=== PATIENT | female | born 1960 | race American Indian/Alaskan Native ===

== ENCOUNTER 2018-09-10 18:27 | Inpatient (IN) | payer OTHER ==
[2018-09-10 18:40] VITALS: BMI 29.0
--- NOTE | 2018-09-10 19:43 | ED PDOC ---
Arrival/HPI - General Chief Complaint: Chest Pain Time Seen by Provider: 09/10/18 19:09 Historian: Patient - History of Present Illness Narrative History of Present Illness (Text): 09/10/18 19:09 Kenzie Ribeiro is a 58 year old female, with a past medical history of CHF, CA, stents, and hypertension, who presents to the emergency department complaining of right arm weakness / numbness and chest pain earlier today. Patient's daughter states she was cooking when right arm fell limp at her side at 5:30pm. Patient notes history of chest pains in past but no history of right arm weakness or numbness. Patient informs of hypertension usually between 180- 190 systolic. Patient's chest pain and right arm weakness / numbness have currently resolved in the emergency department. Patient denies fevers, chills, headache, dizziness, diaphoresis, shortness of breath, dyspnea on exertion, cough, abdominal pain, nausea, vomiting, diarrhea, back pain, neck pain, or any other complaint. Symptom Onset: Sudden Symptom Course: Resolved Activities at Onset: Light Context: Home Past Medical History - Provider Review Nursing Documentation Reviewed: Yes - Reproductive Menopause: Yes - Cardiac Hx Cardiac Disorders: Yes Hx Congestive Heart Failure: Yes Hx Hypertension: Yes Hx Mitral Valve Prolapse: Yes - Endocrine/Metabolic Hx Endocrine Disorders: Yes Hx Diabetes Mellitus Type 2: Yes - Psychiatric Hx Substance Use: No - Surgical History Hx Valve Replacement: Yes (mitral valve,2018) - Anesthesia Hx Anesthesia: Yes Hx Anesthesia Reactions: No Hx Malignant Hyperthermia: No Family/Social History - Physician Review Nursing Documentation Reviewed: Yes Family/Social History: No Known Family HX Smoking Status: Former Smoker Hx Alcohol Use: No Hx Substance Use: No Allergies/Home Meds Allergies/Adverse Reactions: Allergies No Known Allergies Allergy (Verified 09/10/18 18:41) Home Medications: Home Meds Medication Instructions Recorded Confirmed Aspirin [Aspirin Chewable] 81 mg PO DAILY 09/10/18 09/10/18 Atorvastatin [Lipitor] 40 mg PO DAILY 09/10/18 09/10/18 Carvedilol [Coreg] 6.25 mg PO Q12 09/10/18 09/10/18 Furosemide [Lasix] 40 mg PO DAILY 09/10/18 09/10/18 MetFORMIN ER [Glucophage XR] 1,000 mg PO DAILY 09/10/18 09/10/18 Ranolazine [Ranexa] 500 mg PO BID 09/10/18 09/10/18 Sacubitril/Valsartan [Entresto 49 1 tab PO BID 09/10/18 09/10/18 mg-51 mg] Review of Systems - Physician Review All systems were reviewed & negative as marked: Yes - Review of Systems Constitutional: absent: Fevers Respiratory: absent: SOB Cardiovascular: Chest Pain Neurological: Other (right arm numbness and weakness.). absent: Headache Endocrine: absent: Diaphoresis Physical Exam - Physical Exam Narrative Physical Exam (Text): 09/10/18 19:09 Constitutional: No acute distress. Head: Normocephalic. Atraumatic. Eyes: PERRL. ENT: Moist mucous membranes. Neck: Supple. Cardiovascular: Regular rate. Chest: No tenderness. Respiratory: Clear to auscultation bilaterally. GI: Soft. Nontender. Nondistended. Back: No CVA tenderness. Musculoskeletal: No tenderness or swelling of extremities. Skin: No rash. Neurologic: Alert, no focal deficit. Vital Signs Reviewed: Yes Vital Signs Temp Pulse Resp BP Pulse Ox 09/10/18 19:08 97.9 F 82 16 165/111 H 100 Temperature: Afebrile Blood Pressure: Hypertensive Pulse: Regular Respiratory Rate: Normal Appearance: Positive for: Well-Appearing, Non-Toxic, Comfortable Pain Distress: None Mental Status: Positive for: Alert and Oriented X 3 Medical Decision Making ED Course and Treatment: 09/10/18 19:09 Impression: Patient is a 58 year old female who presents to the emergency department complaining of chest pain and right arm weakness / numbness. Patient has no history of right arm weakness / numbness but has history of chest pain. Differential Diagnosis included but are not limited to: TIA, ACS Plan: -- CT head w/o contrast -- Labs -- Chest X-Ray -- Reassess and disposition Progress Notes: Dr. Guy accepts patient to medical service. Full dose ASA taken prior to arrival. Recommends Dr. Portillo and Dr. Layton for consultation. EKG NSR 86 bpm, no ST elevations, lateral T wave inversions. - RAD Interpretation Radiology Orders: 09/10/18 19:24 CHEST PORTABLE [RAD] Stat 09/10/18 19:25 HEAD W/O CONTRAST [CT] Stat rTPA Inclusion/Exclusion - Refusal of Treatment Patient Refused Treatment: No - Inclusion Criteria for Altepase Patient is 18 years or Older: Yes The Clinical Diagnosis of Ischemic Stroke That is Causing a Potentially Disabling Neurological Deficit: No Time of Onset is Well Established to be Less Than 270 Minute Before Treatment Would Begin: Yes Risk/Benefit Discussed With Patient/Family Member Present: Yes NIHSS Stroke Scale 3 - Date/Time Evaluation Performed Date Performed: 09/10/18 Time Performed: 07:32 When Was NIHSS Performed: Baseline - How Severe is the Stroke Level of Consciousness: 0=Alert LOC to Questions: 0=Both comments correct LOC to commands: 0=Obeys both correctly Best Gaze: 0=Normal Visual: 0=No visual loss Facial: 0=Normal Motor Arm - Left: 0=No drift Motor Arm - Right: 0=No drift Motor Leg - Left: 0=No drift Motor Leg - Right: 0=No drift Limb Ataxia: 0=Absent Sensory: 0=Normal Best Language: 0=No aphasia Dysarthia: 0=Normal articulation Extinction & Inattention (Neglect): 0=Normal, no object Score: 0 - Scribe Statement The provider has reviewed the documentation as recorded by the Scribe Poncho Beth All medical record entries made by the Scribe were at my direction and personally dictated by me. I have reviewed the chart and agree that the record accurately reflects my personal performance of the history, physical exam, medical decision making, and the department course for this patient. I have also personally directed, reviewed, and agree with the discharge instructions and disposition. Disposition/Present on Arrival - Present on Arrival Any Indicators Present on Arrival: No History of DVT/PE: No History of Uncontrolled Diabetes: No Urinary Catheter: No History of Decub. Ulcer: No History Surgical Site Infection Following: None - Disposition Have Diagnosis and Disposition been Completed?: Yes Diagnosis: Chest pain, Arm weakness Disposition: HOSPITALIZED Disposition Time: 20:55 Patient Plan: Observation, Telemetry Condition: FAIR Forms: [employer] (Yi)
[2018-09-10 19:52] LABS: BASO # 0.05 K/mm3 (0.0-2.0); EOS # 0.1 (0.0-0.7); EOS % 2.8 % (1.5-5.0); HEMOGLOBIN 10.6 g/dL (12.0-16.0); LYMPH # 1.2 (1.2-3.4); LYMPH % 23.6 % (22.0-35.0); MEAN CORPUSCULAR HEMOGLOBIN 24.1 pg (25.0-35.0); MEAN CORPUSCULAR HGB CONC 30.9 g/dl (31.0-37.0); MEAN PLATELET VOLUME 9.5 fl (7.0-11.0); MONO # 0.4 (0.1-0.6); MONO % 8.1 % (1.0-6.0); RBC 4.4 10^6/uL (3.5-6.1); RED CELL DISTRIBUTION WIDTH 16.6 % (11.5-14.5); WHITE BLOOD COUNT 5.1 10^3/uL (4.5-11.0)
[2018-09-10 19:56] LABS: INR 1.39; PARTIAL THROMBOPLASTIN TIME 35.9 Seconds (26.9-38.3); PROTHROMBIN TIME 15.4 SECONDS (9.4-12.5)
[2018-09-10 20:00] LABS: ALBUMIN 3.8 g/dL (3.0-4.8); ALT/SGPT 33 U/L (7-56); AST/SGOT 36 U/L (14-36); BLOOD UREA NITROGEN 19 mg/dL (7-21); CALCIUM 9.3 mg/dL (8.4-10.5); GFR NON-AFRICAN AMERICAN 57
[2018-09-10 20:12] LABS: TROPONIN I 0.06 ng/mL
--- NOTE | 2018-09-11 08:41 | CT ---
Date of service: 09/10/2018 PROCEDURE: CT HEAD WITHOUT CONTRAST. HISTORY: R arm weakness/numbness for 10 minutes, resolved COMPARISON: None available. TECHNIQUE: Axial computed tomography images were obtained through the head/brain without intravenous contrast. Radiation dose: Total exam DLP = 914.08 mGy-cm. This CT exam was performed using one or more of the following dose reduction techniques: Automated exposure control, adjustment of the mA and/or kV according to patient size, and/or use of iterative reconstruction technique. FINDINGS: HEMORRHAGE: No intracranial hemorrhage. BRAIN: No mass effect or edema. No atrophy or chronic microvascular ischemic changes. VENTRICLES: Unremarkable. No hydrocephalus. CALVARIUM: Unremarkable. PARANASAL SINUSES: Unremarkable as visualized. No significant inflammatory changes. MASTOID AIR CELLS: Unremarkable as visualized. No inflammatory changes. OTHER FINDINGS: None. IMPRESSION: Normal CT of the Head.
--- NOTE | 2018-09-11 09:38 | RAD ---
Date of service: 09/10/2018 HISTORY: chest pain COMPARISON: No prior. FINDINGS: LUNGS: No active pulmonary disease. PLEURA: No significant pleural effusion identified, no pneumothorax apparent. CARDIOVASCULAR: No aortic atherosclerotic calcification present. Moderate cardiomegaly no pulmonary vascular congestion. OSSEOUS STRUCTURES: Sternal wires VISUALIZED UPPER ABDOMEN: Normal. OTHER FINDINGS: None. IMPRESSION: No active disease.
[2018-09-11] MEDS: SACUBITRIL 49mg/VALSARTAN 51mg tab PO SCH ×2 (09:47→17:42)
[2018-09-11] MEDS ORDERED: Home Med 1 UNIT PO SCH ×2 (10:00)
[2018-09-11] MEDS: Enoxaparin 100 mg Syringe SC SCH (14:27)
--- NOTE | 2018-09-11 17:02 | CARD ---
APPROVED REPORT Date of service: 09/10/2018 EKG Measurement Heart [id number] <Conclusion> Normal sinus rhythm Possible Left atrial enlargement Left ventricular hypertrophy T wave abnormality, consider lateral ischemia Prolonged QT Abnormal ECG
--- NOTE | 2018-09-11 17:10 | CON ---
DATE OF CONSULTATION: 09/11/2018 CARDIOLOGY CONSULTATION HISTORY: The patient is a 58-year-old woman with a history of mitral valve replacement in the fall of this year in [place], who had, according to her report, no coronary bypass surgery. She apparently is on Coumadin, but has not been checking it for the past four months. She presents with transient right arm weakness. PAST MEDICAL HISTORY: The patient's past medical history is notable for dilated cardiomyopathy and has been placed on Entresto as an outpatient from her doctors in [place]. She denies shortness of breath, denies angina. SOCIAL HISTORY: The patient does not smoke. 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 REVIEW OF SYSTEMS: A 14-point review of systems is reviewed in detail. No other cardiac symptoms other than weakness of the right upper extremity. PHYSICAL EXAMINATION: VITAL SIGNS: Blood pressure is 140/90, heart rate is in the 80s, sinus rhythm. NECK: Negative JVD. LUNGS: Without rales. CARDIAC: Heart rate S1, S2 with a soft systolic murmur. EXTREMITIES: Without edema. LABORATORY DATA: Laboratory shows normal sinus rhythm with diffuse ST-T changes. The INR on admission was 1.39. Chemistries, BUN and creatinine are unremarkable. Glucose is 129. Hemoglobin is 10.6. IMPRESSION: 1. New right upper extremity weakness, likely due to an embolic phenomenon from her heart. 2. Dilated cardiomyopathy. 3. Recent mitral valve replacement. 4. Subtherapeutic Coumadin levels with recent noncompliance with medical followup. 5. Anemia. 6. Diabetes mellitus. PLAN: Given these findings, the CT scan is negative for bleed. We will start the patient on Lovenox, full dose. The patient will need to get her Coumadin up to an INR of between 2.5 and 3. She will need careful followup to maintain her Coumadin at the right level. I have discussed this with the patient in detail. We will obtain an echocardiogram today. Jens Layton MD
[2018-09-11] MEDS: RANEXA 500 MG PO SCH (17:43)
--- NOTE | 2018-09-11 20:06 | HP ---
DATE OF EXAM: 09/11/2018 HISTORY OF PRESENT ILLNESS: She came into the emergency room last night complaining of right arm weakness and numbness and chest pain earlier in the day. She was cooking when the right arm fell limp. She has a history of chest pains in the past and right arm weakness in the past and numbness. Also, she has history of hypertension. She is uncomfortable now in bed with chest pain. PAST MEDICAL HISTORY: She has a past medical history of CHF, [place] with stents and hypertension. She has type 2 diabetes. She has mitral valve prolapse. PAST SURGICAL HISTORY: There is a large scar on her chest, she had surgery. She is unable to tell me what they did. FAMILY HISTORY: No known family history. SOCIAL HISTORY: A former smoker. No alcohol. No drugs. MEDICATIONS: She is on aspirin, Lipitor, Coreg, Lasix, Glucophage, Ranexa, and Entresto. I am adding amlodipine because her blood pressure is high this morning. We have been trying to get the blood pressure down, put her back on her regular medications plus I added amlodipine. REVIEW OF SYSTEMS: No acute vision or hearing changes. No sore throat. She is having chest pain. She is having shortness of breath. She has having right arm numbness and weakness which is improved now. No sweating. No skin issues. No nausea, vomiting, constipation, or diarrhea. PHYSICAL EXAMINATION GENERAL: She is in bed with chest pain at rest. She is doing okay, uncomfortable. VITAL SIGNS: A 97.9 temperature, 82 pulse, 16 respiratory rate, 165/111 blood pressure, and 100% O2 sat. HEENT: Head is atraumatic, normocephalic. Extraocular muscles intact. Pupils equally react to light and accommodation. Throat is moist. NECK: Supple. CHEST: The chest has a midline scar. HEART: Regular rate. LUNGS: Decreased breath sounds but clear to auscultation. She has chest pain when she takes a deep breath in. ABDOMEN: Soft, nontender. Positive bowel sounds. There is no edema. No rashes I could appreciate. NEUROLOGIC: Alert and oriented x3, uncomfortable. LABORATORY DATA: I had consulted Neurology and Cardiology. EKG showed normal sinus rhythm, no ST elevations some lateral T-wave inversions. She is on observation for chest pain and right arm pain and weakness and numbness. She has a 143 sodium, potassium is 3.7, BUN 19, creatinine 1, GFR is 57, sugar is 113, calcium 9.3, total bili is 0.6, AST is 36, ALT 33, alk phos 78, total protein is 7.8. Troponin I is 0.06, a second one is 0.05. INR is 1.39. White count is 5.1, hemoglobin 10.6, hematocrit 34.3, platelets of 326. There is a head CT, chest x-ray and EKG basically pending. ASSESSMENT AND PLAN: Neurology and Cardiology consults are pending. I added amlodipine. This apparently is the first time she has been on the hospital. We will continue with aggressive treatment and care on Kenzie Ribeiro of her chest pain and right arm weakness, which is resolved. Troponins are negative. Vamshi Guy DO
--- NOTE | 2018-09-11 22:17 | CON ---
DATE: 09/11/2018 HISTORY OF PRESENT ILLNESS: This is a 58-year-old black female with past medical history of CHF, [place], stent, hypertension, and status post open heart surgery and valve replacement. Came here because patient felt limp on the right upper extremity while cooking and also weakness and numbness of the right extremity and brought to the hospital. CAT scan of the head was done, which was reported negative for bleed or an infarct. Symptoms resolved. I was called to evaluate the patient. ALLERGIES: NO KNOWN DRUG ALLERGY. HOME MEDICATIONS: Lipitor, aspirin, Coreg, metformin, and furosemide. PHYSICAL EXAMINATION HEENT: Normocephalic, atraumatic. NECK: Supple. NEUROLOGIC: Alert, awake, oriented to x3. No aphasia. Cranial nerves II through XII were tested. Pupils reactive. EOM intact. Visual field full. No facial asymmetry. Tongue midline. Motor examination; moves all the extremities equally. Tone normal. Deep tendon reflexes 1+. Both plantars are downgoing. Sensory appears intact. Cerebellar gait normal. IMPRESSION AND PLAN: Possibly transient ischemic attack with improvement of the right arm weakness. Workup in progress. CAT scan of the head was negative. Continue present management. We will follow up. Romel Portillo MD
[2018-09-12] MEDS: Enoxaparin 100 mg Syringe SC SCH ×2 (01:55→13:26)
[2018-09-12] MEDS: SACUBITRIL 49mg/VALSARTAN 51mg tab PO SCH ×2 (09:23→17:45)
[2018-09-12] MEDS: RANEXA 500 MG PO SCH ×2 (09:27→17:09)
--- NOTE | 2018-09-12 12:06 | PN ---
DATE: 09/12/2018 SUBJECTIVE: I discussed with Dr. Layton, admitted attorneys, because she is having an embolic event who wants her on Coumadin, between 2 and 3 INR. She is currently on Coreg, Ecotrin, Entresto, Glucophage, Lasix, Lipitor, Lovenox, and Norvasc. I started on Coumadin 10 mg a day. PHYSICAL EXAMINATION: VITAL SIGNS: She has 97.8 temperature, 80 pulse, 132/80 blood pressure, 20 respiratory rate. HEENT: Head is atraumatic, normocephalic. HEART: Regular rate. LUNGS: Decreased breath sounds, but clear. ABDOMEN: Soft. EXTREMITIES: Improved strength when she came in. LABORATORY DATA: She has 143 sodium, potassium 3.7, BUN 19, creatinine 1, GFR is 57, sugars 123, calcium 9.3. Total bilirubin 0.6, AST is 36, ALT is 33, alkaline phosphatase 78, total protein is 7.8. Last troponin 0.05. White count 5.1, 10.6 hemoglobin, 34.3 hematocrit, 326 platelets. ASSESSMENT AND PLAN: The patient has been seen by Neurology and Cardiology. I started her on Coumadin today 10 mg. Check her labs tomorrow, physical therapy, and I changed her to inpatient. Vamshi Guy DO
--- NOTE | 2018-09-12 15:49 | CARD ---
APPROVED REPORT Date of service: 09/12/2018 EXAM: Two-dimensional and M-mode echocardiogram with Doppler and color Doppler. INDICATION MV REPLACEMENT 2D DIMENSIONS Left Atrium (2D)5.1 (1.6-4.0cm)IVSd1.3 (0.7-1.1cm) LVDd6.1 (3.9-5.9cm)PWd1.3 (0.7-1.1cm) LVDs5.7 (2.5-4.0cm)FS (%) 7.5 % LVEF (%)16.4 (>50%) M-Mode DIMENSIONS Aortic Root2.80 (2.2-3.7cm)Aortic Cusp Exc.1.60 (1.5-2.0cm) Aortic Valve AoV Peak Mgwfilpz224.0cm/Moni Peak GR.10mmHg Mitral Valve MV E Gzroapon564.0cm/sMV A Bawelfym90.9cm/sE/A ratio1.6 TDI Lateral E' Peak V6.14cm/sMedial E' Peak V4.19cm/sE/Lateral E'21.5 E/Medial E'31.5 Pulmonary Valve PV Peak Rjndytua11.3cm/sPV Peak Grad.1mmHg Tricuspid Valve TR Peak Jqfxebcd523rx/sRAP GXFOZAIR26ptVnIQ Peak Gr.39mmHg [id number] LEFT VENTRICLE The Left Ventricle is mildly dilated. There is normal left ventricular wall thickness. The systolic function is severely impaired. There is global hypokinesis of the left ventricle. No left ventricle thrombus noted on this study. RIGHT VENTRICLE The right ventricle is mildly dilated.RV Systolic function is severely reduced. There is normal right ventricular wall thickness. Systolic function is severely reduced. ATRIA The left atrium is moderately dilated. The right atrium is moderately dilated. AORTIC VALVE The aortic valve is normal in structure. No aortic regurgitation is present. There is no aortic valvular stenosis. MITRAL VALVE There is no mitral valve regurgitation noted. There is no mitral valve stenosis. The prosthetic mitral valve is not well visualized due to imaging artifacts from the prosthesis. TRICUSPID VALVE There is severe tricuspid regurgitation. There is moderate pulmonary hypertension. PULMONIC VALVE There is moderate pulmonic valvular regurgitation. GREAT VESSELS The aortic root is normal in size. <Conclusion> The Left Ventricle is mildly dilated. There is normal left ventricular wall thickness. The systolic function is severely impaired. There is global hypokinesis of the left ventricle. The right ventricle is mildly dilated.RV Systolic function is severely reduced. The prosthetic mitral valve is not well visualized due to imaging artifacts from the prosthesis. There is severe tricuspid regurgitation. There is moderate pulmonary hypertension. There is moderate pulmonic valvular regurgitation.
--- NOTE | 2018-09-12 17:22 | PN ---
DATE: 09/12/[address] Jens Layton. SUBJECTIVE: The patient complains of mild occipital headache. She denies any chest pain or shortness of breath. OBJECTIVE: VITAL SIGNS: Blood pressure 148/92, heart rate 87, temperature 97.8, respiration 20. HEENT: Normocephalic. CHEST: Clear. HEART: S1, S2 regular. ABDOMEN: Soft. EXTREMITIES: No edema. EKG revealed sinus rhythm at the rate of 86, possible left atrial enlargement, LVH, T wave abnormality, consider lateral ischemia, prolonged QT interval. Head CT scan without contrast was normal study. LABORATORY DATA: Today's blood sugars 123 and 185 respectively. Troponin on admission was 1.43. Today's hemoglobin and hematocrit 12.3 and 37.3, white count 14.9, platelet count 156,000. ASSESSMENT: 1. New onset right upper extremity weakness, rule out embolic event. 2. Dilated cardiomyopathy. 3. Recent mitral valve replacement with subtherapeutic INR. 4. Diabetes mellitus. 5. Hypertension. RECOMMENDATIONS: Continue Coreg 6.25 mg once a day. The patient will receive Coumadin 10 mg today. Continue aspirin 81 mg once a day, Lasix 40 mg p.o. once a day, Lipitor 40 mg once a day, therapeutic subcutaneous Lovenox at 90 mg twice a day and Norvasc at 2.5 mg once a day. I review the echocardiographic study performed today. Fito Garcia MD
[2018-09-13] MEDS: Enoxaparin 100 mg Syringe SC SCH ×2 (00:22→15:56)
[2018-09-13 08:03] LABS: HEMOGLOBIN 10.7 g/dL (12.0-16.0); MEAN CELL VOLUME 80.5 fl (80.0-105.0); MEAN CORPUSCULAR HEMOGLOBIN 23.5 pg (25.0-35.0); MEAN CORPUSCULAR HGB CONC 29.2 g/dl (31.0-37.0); MEAN PLATELET VOLUME 9.3 fl (7.0-11.0); RBC 4.56 10^6/uL (3.5-6.1); RED CELL DISTRIBUTION WIDTH 16.4 % (11.5-14.5); WHITE BLOOD COUNT 4.6 10^3/uL (4.5-11.0)
[2018-09-13 08:08] LABS: INR 1.35; PROTHROMBIN TIME 15.3 SECONDS (9.4-12.5)
[2018-09-13 09:04] LABS: ALB/GLOB RATIO 1.1 (1.1-1.8); ALBUMIN 3.6 g/dL (3.0-4.8); ALT/SGPT 26 U/L (7-56); AST/SGOT 17 U/L (14-36); BLOOD UREA NITROGEN 18 mg/dL (7-21); CALCIUM 9.3 mg/dL (8.4-10.5); GFR NON-AFRICAN AMERICAN 57
[2018-09-13] MEDS: SACUBITRIL 49mg/VALSARTAN 51mg tab PO SCH ×2 (09:42→17:54)
[2018-09-13] MEDS: RANEXA 500 MG PO SCH ×2 (09:44→17:37)
--- NOTE | 2018-09-13 11:48 | PN ---
DATE: 09/13/2018 SUBJECTIVE: She is sitting up in bed, eating her breakfast. She is in fairly good spirits. She had a rough night last night when she had a few beats 6 of them of ventricular tachycardia. 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 Also, she just started Coumadin 10 mg yesterday. She is also on spironolactone, Coreg, Cozaar, Ecotrin, Entresto, metformin, Lasix, Lipitor, Lovenox, Norvasc, Toradol and Tylenol. She is not feeling that great yet. PHYSICAL EXAMINATION: VITAL SIGNS: Temperature 97.6, pulse 86, blood pressure is kat high at 144/93 was 160/98, respiratory rate 18, and O2 sat 95%. HEENT: Head is atraumatic and normocephalic. HEART: Regular rate. LUNGS: Decreased breath sounds, but clear. ABDOMEN: Soft. EXTREMITIES: No edema. LABORATORY DATA: White count 4.6, hemoglobin 10.7, hematocrit 36.7, and platelets 305. INR is 1.35. She is on 10 mg of Coumadin. Sodium is 140, potassium 4.1, BUN 18, creatinine is 1, GFR is 67, sugar is 114, calcium 9.3, total bili is 0.6, AST is 17, ALT is 26, and alk phos 73. Total protein 7. ASSESSMENT AND PLAN: I increased her Cozaar to 50 mg from 25 mg. I will slowly increase until the blood pressure improves. She is being seen by Cardiology. She has multiple issues with her heart. She had chest pain, transient ischemic attack, with right arm weakness. She had diabetes, hypertension, now she has ventricular tachycardia and we are going to get her on Coumadin. We will check her labs tomorrow. I increased the medicine for the blood pressure. Vamshi Guy DO
[2018-09-13] MEDS: Potassium Chloride 20 mEq ER Tab PO SCH (15:56)
--- NOTE | 2018-09-13 20:28 | PN ---
DATE: 09/13/2018 SUBJECTIVE: The patient is short of breath and experiencing worsening of her leg swelling. She had a copy of her surgical report from Hospital where she had a Mosaic porcine mitral valve prosthesis in 03/2018. At that time, the patient had nonischemic cardiomyopathy. The patient was unaware of any recommendations of defibrillator placement at that time. OBJECTIVE: VITAL SIGNS: Blood pressure 135/83, heart rate 73, temperature 97.5, and respirations 20. HEENT: Normocephalic. CHEST: Absent breath sounds over the bases. HEART: S1 and S2 regular. ABDOMEN: Soft. EXTREMITIES: 2+ pitting edema. LABORATORY DATA: Today's hemoglobin and hematocrit 10.3 and 36.7, white count and platelet count are within normal limits. SMA-7 is within normal limits except for glucose of 114 and anion gap of 9. Today's INR is 1.35. Echocardiographic study revealed mildly dilated left ventricle with severely reduced left ventricular systolic function, mildly dilated right ventricle with severely reduced right ventricular systolic function with a prosthetic mitral valve. Moderate pulmonary hypertension. ASSESSMENT: 1. Six beats run of nonsustained ventricular tachycardia was noted today. 2. Nonischemic cardiomyopathy. 3. Status post mitral valve replacement with Mosaic porcine bioprosthesis in 04/2018. 4. Right heart failure and moderate pulmonary hypertension. 5. Dilated cardiomyopathy. RECOMMENDATIONS: The patient was started on Aldactone 25 mg twice a day, Coreg 6.25 mg twice a day, will receive Coumadin 10 mg once a day, will be maintained on Cozaar 50 mg daily, aspirin 81 mg once a day, Entresto 1 tablet twice a day, Lasix will be increased to 40 mg intravenously twice a day with K-Dur 20 mEq once a day. Continue therapeutic subcutaneous Lovenox at 90 mg twice a day. I will discuss the need for ICD placement with Dr. Jens Layton. In the meantime, the patient will remain on telemetry monitoring. Fito Garcia MD
[2018-09-14] MEDS: Enoxaparin 100 mg Syringe SC SCH ×2 (00:18→13:29)
[2018-09-14 07:55] LABS: INR 1.79; PROTHROMBIN TIME 20.2 SECONDS (9.4-12.5)
[2018-09-14 07:57] LABS: HEMOGLOBIN 10.5 g/dL (12.0-16.0); MEAN CELL VOLUME 80.9 fl (80.0-105.0); MEAN CORPUSCULAR HEMOGLOBIN 23.6 pg (25.0-35.0); MEAN CORPUSCULAR HGB CONC 29.2 g/dl (31.0-37.0); MEAN PLATELET VOLUME 9.5 fl (7.0-11.0); RBC 4.45 10^6/uL (3.5-6.1); RED CELL DISTRIBUTION WIDTH 16.4 % (11.5-14.5); WHITE BLOOD COUNT 4.2 10^3/uL (4.5-11.0)
[2018-09-14 08:13] LABS: ALBUMIN 3.5 g/dL (3.0-4.8); ALT/SGPT 21 U/L (7-56); AST/SGOT 26 U/L (14-36); BLOOD UREA NITROGEN 18 mg/dL (7-21); CALCIUM 9.2 mg/dL (8.4-10.5); GFR NON-AFRICAN AMERICAN 57
[2018-09-14] MEDS: Potassium Chloride 20 mEq ER Tab PO SCH (08:55)
[2018-09-14] MEDS: SACUBITRIL 49mg/VALSARTAN 51mg tab PO SCH ×2 (09:01→17:00)
[2018-09-14] MEDS: RANEXA 500 MG PO SCH (09:03)
--- NOTE | 2018-09-14 14:54 | PN ---
DATE: 09/14/2018 SUBJECTIVE: She is currently on warfarin, also Lovenox, we are trying to get her INR about 2, a note from the Cardiology states may be an has ICD placement. If that is the case, she will be stopped Coumadin. I will discuss that with Cardiology, she has been on Coumadin for 3 days now. MEDICATIONS: She is on Aldactone, Coreg, Coumadin, Cozaar, Ecotrin, Entresto, Glucophage, potassium replacement, Lasix, Lipitor, Lovenox, Norvasc, Toradol, Tylenol and her blood pressure was quite high. PHYSICAL EXAMINATION: VITAL SIGNS: She has a 97.4 temperature, 81 pulse, 154/99 blood pressure, 18 respiratory rate, 100% O2 on room air. The other day we increased her Norvasc up to 10 mg from 5, now we will increase the Cozaar from 50 to 100 trying to get this blood pressure under 90. GENERAL: She is uncomfortable in bed. Concerned about an ICD placement. LABORATORY DATA: She has a 140 sodium, potassium 4.2, BUN 18, creatinine 1, GFR is 60, sugar 117, calcium 9.2, total bili is 0.4, AST is 26, ALT is 21, and alk phos 68. Total protein 7, INR 1.79. She has a 4.2 white count, 10.5 hemoglobin, 36 hematocrit with a 304 platelets. ASSESSMENT AND PLAN: She has been seen by Cardiology, await decision on ICD stop the Coumadin. We will continue aggressive treatment and care. She is quite uncomfortable. She will have multiple issues, chest pain, transient ischemic attack, ventricular tachycardia, diabetes, hypertension, and we will continue. Vamshi Guy DO [facility]
--- NOTE | 2018-09-14 21:55 | PN ---
DATE: 09/14/2018 SUBJECTIVE: The patient is experiencing shortness of breath and headache. PHYSICAL EXAMINATION: VITAL SIGNS: Blood pressure 135/86, heart rate 76, temperature 97.4, respirations 20. HEENT: Normocephalic. CHEST: No rales. HEART: S1 and S2, regular. EXTREMITIES: 1+ pitting edema. LABORATORY DATA: Hemoglobin and hematocrit of 10.5 and 36, white count 4.2, platelet count 304,000. Today's SMA-7 is within normal limits except for glucose of 117 and an anion gap of 8. ASSESSMENT: 1. Nonischemic cardiomyopathy. 2. Status post porcine mitral valve replacement. 3. Uncontrolled hypertension. 4. Nonsustained ventricular tachycardia. 5. Right heart failure and moderate pulmonary hypertension. RECOMMENDATIONS: Continue Aldactone 25 mg once a day and Coreg 6.25 mg twice a day. The patient will receive Coumadin 10 mg a day. She is still on therapeutic subcutaneous Lovenox at 90 mg twice a day. Continue Cozaar at 100 mg once a day, Entresto one tablet twice a day, and Lasix 40 mg intravenous twice a day. Continue Lipitor 40 mg once a day. We will start clonidine at 0.1 mg twice a day. The patient did receive a stat dose of 0.2 mg of clonidine half an hour ago. Fito Garcia MD
[2018-09-14 22:56] VITALS: RESP 18; O2SAT 96
[2018-09-15] MEDS: Enoxaparin 100 mg Syringe SC SCH ×2 (05:47→13:33)
[2018-09-15 07:28] LABS: HEMOGLOBIN 10.9 g/dL (12.0-16.0); MEAN CELL VOLUME 79.5 fl (80.0-105.0); MEAN CORPUSCULAR HEMOGLOBIN 23.7 pg (25.0-35.0); MEAN CORPUSCULAR HGB CONC 29.9 g/dl (31.0-37.0); MEAN PLATELET VOLUME 9.6 fl (7.0-11.0); RBC 4.59 10^6/uL (3.5-6.1); RED CELL DISTRIBUTION WIDTH 16.3 % (11.5-14.5)
[2018-09-15 07:32] LABS: INR 3.17; PROTHROMBIN TIME 35.8 SECONDS (9.4-12.5)
[2018-09-15 07:48] LABS: ALBUMIN 3.6 g/dL (3.0-4.8); ALT/SGPT 34 U/L (7-56); AST/SGOT 44 U/L (14-36); BLOOD UREA NITROGEN 21 mg/dL (7-21); CALCIUM 9.4 mg/dL (8.4-10.5); GFR NON-AFRICAN AMERICAN 57
[2018-09-15] MEDS: Potassium Chloride 20 mEq ER Tab PO SCH (08:37)
--- NOTE | 2018-09-15 08:50 | PQF ---
PROVIDER RESPONSE TEXT: As per cardiology REVIEWER QUERY TEXT: Heart Failure Acuity and Type Congestive Heart Failure is documented in the Medical Record. Please document the type and acuity (in cludes probable or suspected) Such as: Type: -- Combined systolic and diastolic (heart failure with reduced ejection fraction and diastolic) dysfu nction -- Diastolic (HFpEF) -- Systolic (HFrEF) -- Left heart failure -- Right heart failure -- Right heart failure due to left heart failure -- High output failure -- End stage heart failure -- Other, please specify Acuity: -- Acute -- Chronic -- Acute on chronic -- Other, please specify Also please document the underlying cause of the CHF (includes probable or suspected) The patient's Clinical Indicators include: Patient developed SOB, worsening leg swelling. Echo showing severely impaired systolic function, pulm onary HTN. Patient receiving Lasix IV. Please document specifically if patient has CHF, type and acuity. Query created by: Ronna Reed on 09/15/2018 7:33 AM Electronically signed by: Vamshi Guy DO 09/15/2018 8:47 AM
[2018-09-15] MEDS: SACUBITRIL 49mg/VALSARTAN 51mg tab PO SCH (09:58)
[2018-09-15 10:00] VITALS: BP 120/82
--- NOTE | 2018-09-15 10:19 | PN ---
DATE: 09/15/2018 SUBJECTIVE: She is comfortable in bed, did not sleep that well, still little bit . MEDICATIONS: She is on Aldactone, Catapres, Coreg, Cozaar, Ecotrin, Entresto, Glucophage, potassium, Lasix 40 twice a day, Lipitor, Lovenox, Norvasc, Toradol and Tylenol. OBJECTIVE: GENERAL: She does not feel well. VITAL SIGNS: 98.5 temperature, 74 pulse, 124/81 best blood pressure she has had, 18 respiratory rate, 96% O2 sat on room air. HEENT: Head is atraumatic, normocephalic. HEART: Regular rate. LUNGS: Decreased breath sounds, but clear. ABDOMEN: Soft, obese. EXTREMITIES: No edema. When she came in she had right arm weakness that went away, like a TIA. She had V-tach, she has cardiomyopathy, nonischemic. She has diabetes, hypertension. When I get the okay from Cardiology, I will discharge her. She has also been on Coumadin INR now it is little bit elevated, I held the Coumadin today. LABORATORY DATA: White count is 4, hemoglobin 10.9, hematocrit 36.5 with platelets of 286. INR was 1.79 yesterday, now is 3.17, I will hold the Coumadin and she will need to be probably on Coumadin 4 mg a day if she would be discharged, if it is with okay with Cardiology. She has a 139 sodium, potassium 4.2, BUN 21, creatinine 1, GFR 57, sugar is 125, calcium 9.4, total bili is 0.3, AST is 44, ALT 35, alkaline phosphatase , total protein is 7. ASSESSMENT AND PLAN: So, she is anticoagulated. She has multiple issues. If it is okay with Cardiology, I will discharge her, otherwise we will check her labs tomorrow and adjust the Coumadin. Vamshi Guy DO [facility]
[2018-09-15] MEDS: RANEXA 500 MG PO SCH (11:15)
[2018-09-15 12:33] VITALS: PULSE 74; TEMP 97.6
--- NOTE | 2018-09-15 19:41 | PN ---
DATE: 09/15/2018 CARDIOLOGY FOLLOWUP SUBJECTIVE: The patient is comfortable. PHYSICAL EXAMINATION: GENERAL: Blood pressure is 120/82, heart rate is in normal sinus rhythm. NECK: Negative JVD. LUNGS: Without rales. HEART: S1 and S2. EXTREMITIES: Without edema. LABORATORY DATA: The INR is 3.5. IMPRESSION: 1. Likely transient ischemic attack. 2. Status post mitral valve replacement. 3. History of dilated cardiomyopathy. 4. Diabetes mellitus. PLAN: Given these findings, from a cardiac perspective, the patient can be discharged today. She will need to have her Coumadin adjusted at Dr. Guy's office tomorrow, which she is agreeable. We will have her follow up with me to see me in the office in 3-4 weeks to help her end-stage dilated cardiomyopathy and for consideration of a possible defibrillator. Jens Layton MD
== END 2018-09-15 16:42 | disposition home or self-care (01) | DRG 69 ==
LOC: ED 18:27 → ERH 20:55 → 2RSO 09-11 00:13 → OBSVTOIN 09-12 09:15
PROVIDERS: ADMIT Family Medicine; ATTEND Family Medicine
DX: G45.9 Transient cerebral ischemic attack, unspecified (principal); I42.0 Dilated cardiomyopathy; I47.2 Ventricular tachycardia; R07.9 Chest pain, unspecified; I27.29 Other secondary pulmonary hypertension; I11.0 Hypertensive heart disease with heart failure; E11.9 Type 2 diabetes mellitus without complications; I34.1 Nonrheumatic mitral (valve) prolapse; D64.9 Anemia, unspecified; Z91.19 Patient's noncompliance with other medical treatment and regimen; Z87.891 Personal history of nicotine dependence; Z95.3 Presence of xenogenic heart valve; I50.810 Right heart failure, unspecified; Z79.01 Long term (current) use of anticoagulants; Z79.82 Long term (current) use of aspirin; Z79.899 Other long term (current) drug therapy